=== PATIENT | female | born 1970 | race Two or more races ===

== ENCOUNTER 2019-04-25 13:40 | Emergency (ER) | payer SELFPAY ==
[~2019-04-25] VITALS: Ht 154.9 cm; Wt 72.0 kg
[2019-04-25 13:45] VITALS: BP 139/95
[2019-04-25] MEDS ORDERED: IBUPROFEN 600MG TABLET PO STA (14:39)
[2019-04-25] MEDS ORDERED: ACETAMINOPHEN WITH CODEINE 300/30MG TABLET PO STA (14:46)
== END 2019-04-25 16:10 | disposition home or self-care (01) ==
LOC: ER 13:56
DX: S16.1XXA Strain of muscle, fascia and tendon at neck level, initial encounter (principal); S29.012A Strain of muscle and tendon of back wall of thorax, initial encounter; M54.9 Dorsalgia, unspecified; V49.50XA Passenger injured in collision with unspecified motor vehicles in traffic accident, initial encounter; Y93.89 Activity, other specified; Y92.89 Other specified places as the place of occurrence of the external cause; Y99.8 Other external cause status
CPT/HCPCS: 71045; 72070; 81025; 99284